=== PATIENT | female | born 1980 | race Caucasian/White ===

== ENCOUNTER → 2016-11-14 07:27 | Outpatient (CLI) | payer OTHER ==
[~2016-11-14 07:27] MED LIST: CARAFATE1 G PO; FEXOFENADINE HC60 MG PO; FLUTICASONE PRO16 GM NASAL; GABAPENTIN100 MG PO; MEPERIDINE HCL50 MG PO; PROBIOTIC1 EAC1 PO; SYNTHROID88 MCG PO; TOPAMAX50 MG PO; TRINTELLIX20 MG PO
== END | disposition home or self-care (01) ==
LOC: D.US 07:27
DX: R10.9 Unspecified abdominal pain (principal)

== ENCOUNTER → 2016-11-21 09:14 | Outpatient (CLI) | payer OTHER ==
[2016-11-21 10:08] LABS: HCG SERUM NEGATIVE (NEGATIVE)
== END | disposition home or self-care (01) ==
LOC: D.NM 09:14
PROVIDERS: Family Medicine
DX: R10.9 Unspecified abdominal pain (principal)

== ENCOUNTER 2016-12-15 07:42 | Day surgery (SDC) | payer OTHER ==
[~2016-12-15 07:42] MED LIST changes: -MEPERIDINE HCL50 MG PO
[2016-12-15 08:32] LABS: BASOPHILS 0.2 % (0.0-2.0); EOSINOPHILS 0 % (0-7); HEMOGLOBIN 10.9 g/dL (12-16); IMMATURE GRANULOCYTES 0.2 % (0-5); LYMPHOCYTES 28.6 % (15-50); MCH 21.5 pg (26.0-34.0); MCHC 32.1 g/dL (31.0-37.0); MCV 67.2 fL (80.0-100.0); MONOCYTES 5.6 % (2-11); NEUTROPHILS 65.4 % (40-80); PLATELET COUNT 183 10x3/uL (130-400); RBC 5.06 10x6/uL (4.00-5.40); RDW 14.3 % (11.5-14.5); WBC 4.3 10x3/uL (4.8-10.8)
[2016-12-15 08:38] VITALS: BP 102/65; BMI 23.9
[2016-12-15 08:49] LABS: CALC OSMOLALITY 280 mosm/kg (275-300); CALCIUM 8.7 mg/dL (8.5-10.1); CARBON DIOXIDE 22.2 mmol/L (21.0-32.0); CHLORIDE - SERUM 107 mmol/L (98-107); CREATININE - SERUM 0.7 mg/dL (0.6-1.3); GLUCOSE 95 mg/dL (74-106); POTASSIUM - SERUM 3.7 mmol/L (3.5-5.1); SODIUM 140 mmol/L (136-145); UREA NITROGEN 17 mg/dL (7-18); eGFR NON AFRICAN AMERICAN > 90 mL/min (90-120)
[2016-12-15 08:58] LABS: HCG URINE NEGATIVE (NEGATIVE)
[2016-12-15] MEDS ORDERED: MEPERIDINE HCL50 MG PO (14:22)
--- NOTE | 2016-12-15 18:09 | NUR ---
1600 UP TO BATHROOM VOIDED , IV DC WITH CATHER TIP INTACT 1615 C/O NAUSEA CALLED FOR MED, 165 ZOFRAN ODT GIVEN 173 STATED FELT BETTER D/C HOME WITH FAMILY
--- NOTE | 2017-01-10 14:51 | OP ---
PATIENT NAME: NIKKY MONTERO MEDICAL RECORD: [id number] :84 LOCATION:D.OPS ADMISSION DATE: SURGEON: HOMERO GOTTI MD DATE OF OPERATION: 12/15/2016 PREOPERATIVE DIAGNOSES: 1. Biliary dyskinesia. 2. Hyperthyroidism. 3. Anxiety disorder. 4. Hemiplegic migraines. POSTOPERATIVE DIAGNOSES: 1. Biliary dyskinesia. 2. Hyperthyroidism. 3. Anxiety disorder. 4. Hemiplegic migraines. PROCEDURE: Laparoscopic cholecystectomy. SURGEON: Homero Gotti MD. REPORT OF PROCEDURE: The patient's abdomen was prepped and draped in sterile fashion. A cutdown was made on the superior aspect of the umbilicus, 0 Vicryls were placed in the fascia bilaterally and the fascia was incised with 15-blade. I then bluntly entered the peritoneal cavity and placed a 12-mm Shannan port. Under direct visualization, a 5-mm trocar was placed in the epigastrium and 2 more 5-mm trocars were placed in the right subcostal region. The gallbladder was grasped and elevated. There are some minimal inflammatory changes present, but nothing that was acute. The cystic artery and cystic duct were dissected free and these were clipped proximally and distally and ligated in standard fashion. The gallbladder was then taken off the liver bed using electrocautery and placed into the right upper quadrant. Any bleeding from the liver bed was then treated with electrocautery. At this point, the ports and insufflation were then removed and the gallbladder was taken out through the umbilicus. The umbilical fascia was closed with interrupted 0 Vicryls times 3. The wounds were irrigated out with normal saline and infused with 10 mL of 0.25% Marcaine with epinephrine. The skin incisions were all closed with subcutaneous 5-0 Monocryl and dressed appropriately. COMPLICATIONS: None. CONDITION: Stable. ANESTHESIA: General endotracheal and local. BLOOD LOSS: Minimal. TRANSINT:[id number] Voice Confirmation ID: [id number] DOCUMENT ID: [id number] OPERATIVE REPORT [id number] NIKKY MONTERO HOMERO GOTTI MD at 1451 CC: SKYLAR KINCAID DO [id number] DICTATION DATE: 12/15/16 1426 DEALER SUPPORT TECHNICIAN: 12/15/16 1534 [facility] 12/15/16 [facility] [address] [place] [address]
== END 2016-12-15 17:30 | disposition home or self-care (01) ==
LOC: D.OPS 07:42
PROVIDERS: Surgery
DX: K82.8 Other specified diseases of gallbladder (principal); E03.9 Hypothyroidism, unspecified; F41.9 Anxiety disorder, unspecified; G43.409 Hemiplegic migraine, not intractable, without status migrainosus